=== PATIENT | female | born 2005 | race Two or more races ===

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

== ENCOUNTER 2025-04-26 08:36 | Outpatient (AMB) | payer OTHER, SELFPAY ==
--- OUTSIDE RECORDS SUMMARY | 2025-04-26 08:54 | XMS_ITS | Clinical Summary ---
Author Organization [facility] Address [address] [place] [address] Phone Care Team Providers Care Psychotherapist Counselor Name Role Phone Georges Almodovar MD Primary Care Provider [phone] Social History Tobacco Use Types Packs/Day Years Used Date Smoking Tobacco: Never Assessed Comments Unknown Sex and Gender Information Value Date Recorded Sex Assigned at Not on file Legal Sex Female 2:18 PM EST Gender Identity Not on file Sexual Orientation Not on file Plan of Treatment Health Maintenance Due Date Last Done Comments Gonorrhea/Chlamydia Screening 2004 Meningococcal B Vaccine (1 of 2 - Standard) 2020 Social Influencers of Health Screening 05/02/2022 Depression Screening 06/03/2024 COVID-19 Vaccine (2024- season) 2025 11/08/2020, 10/18/2020 Influenza Vaccine (#1) 2025 9, 03/05/2018, 04/01/2017, Additional history exists Cervical Cancer Screening: Pap Smear 2025 Annual Well Child Visit (3-21 years old) 08/20/2025 08/20/2024, 08/02/2022, 06/27/2021, Additional history exists DTaP,Tdap,and Td Vaccines (8 - Td or Tdap) 01/02/2026 01/03/2016, 01/03/2016, 04/20/2008, Additional history exists Cholesterol Screening (Lipid Panel) 08/24/2029 08/24/2024, 08/24/2024, 04/29/2023, Additional history exists RSV Immunization Adult Patients (1 - 1-dose 75+ series) 2079 HIB Vaccines Completed 07/05/2005, 07/04, 2004 Hepatitis B Vaccines Completed 04/20/2008, 2004, 2004 IPV Vaccines Completed 04/20/2008, 09/01, 2004, Additional history exists MMR Vaccines Completed 04/20/2008, 10/01/2007 Varicella Vaccines Completed 04/20/2008, 07/05/2005 HPV Vaccines Completed 04/01/2017, 01/03/2016 Hepatitis A Vaccines Completed 03/05/2018, 07/08/19 18 HIV Screening Completed 03/24/2019 Meningococcal ACWY Vaccine Completed 09/01/2020, Hepatitis C Screening Completed 08/02/2022 Pneumococcal Vaccine: Pediatrics (0 to 5 Years) and At-Risk Patients (6 to 49 Years) Completed 02/27/2023, 07/05/2005, 2004, Additional history exists RSV Immunization Patients Under 20 months Aged Out No longer eligible based on patient's age [place] [address] [place] [address] [facility] Care Teams Psychotherapist Counselor Relationship Specialty Start Date End Date Georges Almodovar MD [facility] [place] [id number] PCP - General Internal Medicine 02/24/25
--- NOTE | 2025-04-26 14:22 | MHC.OFFVISWM ---
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 Allergies Peanut Butter Allergy (Unknown, Verified 04/26/25 14:22) Unknown soy Allergy (Unknown, Verified 04/26/25 14:22) UNKNOWN ALMONDS Allergy (Unknown, Uncoded 04/26/25 14:22) Unknown Medication List - Last Reconciled 04/26/25 by Kobe Akbar MD loratadine (Claritin) 10 mg PO DAILY topiramate XR 25 mg PO DAILY HPI HPI 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 44.2: Details: Start time: 2.15pm, End time: 2.55pm ?I spent 35 minutes speaking with the patient on the phone plus an additional 5 minutes reviewing and updating records for a total of 40 minutes HPI Comments Details: Previous weight loss efforts: self diets and exercise Wakes: 6am, Sleeps: 12am, naps in afternoon Breakfast: 8.30am (eggs) Lunch: 12.30pm (rice, chicken, sandwich) Dinner: 6pm (rice, pasta, chicken) Snacks: 4pm (chips), 9pm (chips, cheerios) Exercise: Treadmill (no incline) Beverages: Coffee: none, Tea: none, Soda: Regular Coke: 3-4/wk, Juice: none, ETOH: none PFSH Medical History (Updated 04/26/25 @ 14:26 by Kobe Akbar MD) PCOS (polycystic ovarian syndrome) Persistent headaches Morbid obesity Surgical History (Updated 04/13/25 @ 16:15 by Laine Kennedy CMA) No history of previous surgery Family History (Updated 04/13/25 @ 16:16 by Laine Kennedy CMA) Mother No problems noted. Father No problems noted. Social History (Updated 04/13/25 @ 16:16 by Laine Kennedy CMA) Alcohol intake: never Patient Tobacco Use Status: Never used Tobacco Telehealth Telehealth Telehealth Platform: Telephone Location of provider rendering services: practice address Location of patient: address on file Patient Identification confirmed using: Name, : Yes Telehealth method: voice only Patient verbally consented to treatment: Yes Patient verbally consented to billing insurance company: Yes Patient informed of any privacy concerns related to visit: Yes Minutes spent on Phone/Video with Pt.: 40 Assessment & Plan Assessment & Plan (1) Morbid obesity: Code(s): E66.01 - Morbid (severe) obesity due to excess calories Category: Medical Plan: 1.? Plan for lap sleeve gastrectomy. If diaphragmatic or ventral hernias are present at time of surgery, these will be repaired laparoscopically as well. I emphasized the importance of close follow-up, adherence to instructions and good communication. The surgery does not replace the need to change your lifestlyle which is the cause of the obesity problem. The surgery provides the motivation to try again to change your lifestyle, it reduces the appetite and make the transition to a better lifestyle easier and doubles the amount of weight you would lose compared to doing the lifestyle change without the surgery. You will need to be on a liquid diet with protein shakes for 2 weeks before surgery to maximize weight loss and boost your nutritional status to recover better from surgery and also for the first two weeks after surgery to let the stomach heal before we introduce other foods. After the first 2 weeks we will introduce protein bars and soft foods like scrambled eggs, cottage cheese and yogurt and after the 6th week will introduce meat, fish and cooked vegetables in small amounts. Over time you should be able to eat everything in small amounts. Side effects like nausea, vomiting, heartburn or abdominal pain are not common in the practice unless you are not following in the practice. This operation requires lifetime commitment to following in our practice and communication with me. You will much less weight and experience side effects if you don?t communicate or not following in the practice. Complications are rare and in our practice is about 1/10 of the national average. However, you can develop bleeding that may require transfusion (hasn?t happened for year in the practice), you may from complications (we did not have any deaths in the practice) and infections. Infections are usually a result of breakdown in communication or not understanding or following directions correctly. They are difficult to treat, they can happen during the first 6 weeks, they may require to be in the hospital for weeks or even months, not being able to eat by mouth and you may have drains and surgeries to try and correct the issue. Other risks and complications include possible conversion to an open procedure, leaks, small bowel obstruction, blood clots, cardiac, or pulmonary complications, as social media content manager complications such as ulcers, insufficient weight loss and vitamin deficiencies. 2. Nutritional counseling. Start with one CELEBRATE REBUILD protein (buy online with the link I gave you) shake (ONE scoop in 8oz low fat unsweetened almond milk) at 7am-9am, 1 ALOHA protein bar at 10am-12pm, another CELEBRATE REBUILD protein shake (ONE scoop in 8oz low fat unsweetened almond milk) at 1pm-3pm, another ALOHA protein bar at 4pm-6pm, dinner at 7pm (8 forks of protein and 8 forks of salad/vegetables) AND another ALOHA protein bar after dinner at 9pm-11pm. So you do 2 protein shakes, 3 protein bars and one meal per day. Meal to include lean meat (beef, fish, pork, turkey, chicken), or mohawk yogurt, or egg whites, or beans with a salad with olive oil and fruits (berries, pears, apples, kiwi). Avoid salt, breads, potatoes, rice, pasta, desserts. 3. Each shake would be drunk slowly, like coffee in a period of 2 hours. 4. Cut each bar in 4 pieces and eat each piece in 30min ?to make each bar last 2 hours. 5. I emphasized the importance of measuring accurately the food portion and measure it when serving the food in plate 6. The meal portions include 8 full-size forks of meat and 8 full-size forks of salad. You always eat the meat portion but you can replace up to 4 forks for salad/vegetables with rice, potatoes or pasta, or a fruit ?if you like. The less you do it the better weight loss will be. 7. One full-size fork is what it can be scooped on the fork without falling aside and not what can be bit with the fork. Use regular forks like those you find in a typical restaurant. 8.? Please buy the body composition scale we discussed and send me weight measurements as soon as possible and then once a week. Always include your diet and exercise plan. 9. Start treadmill at a speed of 3.5 mph and burn 300 calories each day, daily. Goal is to burn 2000 calories per week on exercise, which means either 300 calories daily. 10.?It is important of avoiding and for at least 18 months postoperatively and has been discussed at the infosession. 11. Goal is to lose at least 1.5-2lbs per week 12. Goal to lose 10% of your weight before surgery, which is about 21lbs. Ultimate weight goal: 220lbs before surgery 13. Please follow the diet plan exactly without any change. If you don't like something about the plan or you feel hungry you need to communicate with me so I can help you revise the plan. You should not change the plan yourself 14. To be scheduled for EGD to assess the stomach's anatomy. The possibility of biopsies was discussed. Patient needs to avoid use of NSAIDs and aspirin for 1 week prior to EGD. You must be on liquids only the day before your endoscopy. Risks of perforation and bleeding was discussed with the patient. This will be an outpatient procedure with IV sedation. Orders: Orders Hemoglobin A1c Today E28.2 - Polycystic ovarian syndrome, E66.01 - Morbid (severe) obesity due to excess calories Lipid Panel Today E28.2 - Polycystic ovarian syndrome, E66.01 - Morbid (severe) obesity due to excess calories Comprehensive Met. Panel Today E28.2 - Polycystic ovarian syndrome, E66.01 - Morbid (severe) obesity due to excess calories Vitamin B12 and Folate Today E28.2 - Polycystic ovarian syndrome, E66.01 - Morbid (severe) obesity due to excess calories C Reactive Protein Today E28.2 - Polycystic ovarian syndrome, E66.01 - Morbid (severe) obesity due to excess calories Vitamin B1 Today E28.2 - Polycystic ovarian syndrome, E66.01 - Morbid (severe) obesity due to excess calories Vitamin D 25-OH Total Today E28.2 - Polycystic ovarian syndrome, E66.01 - Morbid (severe) obesity due to excess calories XR chest 2V Today E28.2 - Polycystic ovarian syndrome, E66.01 - Morbid (severe) obesity due to excess calories ECG 12 lead EKG Today E28.2 - Polycystic ovarian syndrome, E66.01 - Morbid (severe) obesity due to excess calories Insulin Today E28.2 - Polycystic ovarian syndrome, E66.01 - Morbid (severe) obesity due to excess calories H Pylori Breath Test Today E28.2 - Polycystic ovarian syndrome, E66.01 - Morbid (severe) obesity due to excess calories Complete Blood Count Auto Diff Today E28.2 - Polycystic ovarian syndrome, E66.01 - Morbid (severe) obesity due to excess calories IRON PROFILE Today E28.2 - Polycystic ovarian syndrome, E66.01 - Morbid (severe) obesity due to excess calories Zinc Today E28.2 - Polycystic ovarian syndrome, E66.01 - Morbid (severe) obesity due to excess calories Vitamin A Today E28.2 - Polycystic ovarian syndrome, E66.01 - Morbid (severe) obesity due to excess calories TSH reflex Free T4 Today E28.2 - Polycystic ovarian syndrome, E66.01 - Morbid (severe) obesity due to excess calories Ferritin Today E28.2 - Polycystic ovarian syndrome, E66.01 - Morbid (severe) obesity due to excess calories US abdomen comp w elastography Today E28.2 - Polycystic ovarian syndrome, E66.01 - Morbid (severe) obesity due to excess calories FL upper GI w air Today E28.2 - Polycystic ovarian syndrome, E66.01 - Morbid (severe) obesity due to excess calories Referrals Nutrition/Dietitian Referral E28.2 - Polycystic ovarian syndrome, E66.01 - Morbid (severe) obesity due to excess calories Behavioral Health Referral E28.2 - Polycystic ovarian syndrome, E66.01 - Morbid (severe) obesity due to excess calories
[2025-04-26 14:31] VITALS: BMI 44.1
== END 2025-04-26 14:55 | disposition home or self-care (01) ==
LOC: HO.HBS 08:36
PROVIDERS: Visit Provider Surgery
DX: E66.01 Morbid (severe) obesity due to excess calories (principal)
CPT/HCPCS: 99203